=== PATIENT | female | born 1965 | race Caucasian/White ===

== ENCOUNTER 2018-02-14 20:56 | Observation (INO) ==
--- NOTE | 2018-02-14 21:07 | Emergency Department Note ---
Disposition Clinical Impression: Chest pain, Fever Disposition: Admitted As Inpatient Condition: Good Chest Pain HPI - General Chief Complaint: ED Chest Pain Stated Complaint: chest pain Time Seen by Provider: 02/14/18 21:05 Source: patient Mode of arrival: ambulatory Limitations: no limitations Vital Signs Reviewed: Yes Nursing Notes Reviewed: Yes - History of Present Illness HPI Narrative: Patient complains of chest pain tonight on the right side of her chest reading through to her back. Started about 5:00 this evening. It is not let up. Nothing she does seems to make it better or worse. She does feel little short of breath. She denies any nausea Pt complaint: chest pain Onset (ago): hour(s) (several hours) Duration: constant Onset: during rest Pain Location: right chest Severity: moderate Severity scale (1-10): 5 Quality: aching Pain Radiation: back Improves with: nothing Worsens with: nothing Associated symptoms: Reports: fever - Related Data Home Medications Medication Instructions Recorded Confirmed Estrogens, Conjugated [Premarin] 0.9 mg PO DAILY 06/23/16 02/14/18 Fenofibrate 40 mg PO DAILY 06/23/16 02/14/18 Omeprazole 40 mg PO DAILY 06/23/16 02/14/18 Aspirin [Lo-Dose Aspirin EC] 81 mg PO QAM 02/14/18 02/14/18 Allergies Allergy/AdvReac Type Severity Reaction Status Date / Time Sulfa (Sulfonamide Allergy Hives Verified 06/23/16 11:24 Antibiotics) All systems ED: reviewed and negative except as stated. Review of Systems: As Per HPI Constitutional: Denies: fever, chills, weakness, weight change Eyes: Denies: eye pain, eye discharge, vision change ENT ED: Denies: ear pain, throat pain, dental pain, hearing loss, epistaxis, congestion, dysphagia Cardiovascular: Reports: as per HPI, chest pain. Denies: palpitations, dyspnea on exertion, edema, syncope Respiratory: Denies: cough, dyspnea, wheezes, hemoptysis, stridor Gastrointestinal: Denies: abdominal pain, nausea, vomiting, diarrhea, constipation, hematemesis, melena, hematochezia Genitourinary: Denies: dysuria, frequency, hematuria, discharge Musculoskeletal: Denies: back pain, neck pain, arthralgia, myalgia Integumentary: Denies: rash, abrasion, lesions Neurological: Denies: headache, weakness, numbness, paresthesias, confusion, abnormal gait, vertigo Psychiatric: Denies: anxiety, depression, suicidal thoughts, homicidal thoughts , auditory hallucinations, visual hallucinations Endocrine: Denies: fatigue Hematological/Lymphatic: Denies: easy bleeding, easy bruising Allergic/Immunologic: Denies: facial swelling, urticaria Chest Pain PMH - Past Medical History Medical history: Reports: asthma, GERD, hyperlipidemia, renal disease, TIA, other Surgical history: Reports: cholecystectomy, hysterectomy, other (Tonsillectomy) Psychiatric history: Reports: no psych history - Social History Smoking Status: Never smoker Alcohol use: Reports: none Drug use: Reports: none Physical Exam - General Limitations: no limitations General appearance: alert, in no apparent distress - Head Head exam: atraumatic, normocephalic, normal inspection - Eye Eye exam: Present: normal appearance, PERRL, EOMI - ENT ENT exam: normal exam, normal oropharynx, mucous membranes moist - Neck Neck exam: Present: normal inspection, full ROM, trachea midline. Absent: tenderness, meningismus - Chest Chest inspection: Present: normal inspection, symmetric chest wall rise - Respiratory Respiratory exam: Present: normal lung sounds bilaterally - Cardiovascular Cardiovascular exam: Present: regular rate, normal rhythm, normal heart sounds - Abdominal Exam Abdominal exam: Present: soft, Non-Tender. Absent: tenderness, distention, guarding, rebound, rigidity - Extremities Exam Extremities exam: Present: normal inspection, full ROM. Absent: tenderness, pedal edema - Back Exam Back exam: Present: normal inspection - Neurological Exam Neurological exam: Present: alert, oriented X3 - Psychiatric Psychiatric exam: Present: normal affect, normal mood - Skin Skin exam: Present: warm, dry, intact Course Vital Signs Temperature 101.5 F H 02/14/18 21:00 Pulse Rate 103 02/14/18 21:00 Respiratory Rate 18 02/14/18 21:00 Blood Pressure 143/86 02/14/18 21:00 O2 Sat by Pulse Oximetry 97 02/14/18 21:00 Temperature 99.2 F 02/15/18 07:22 Pulse Rate 85 02/15/18 07:22 Respiratory Rate 16 02/15/18 07:22 Blood Pressure 110/76 02/15/18 07:22 O2 Sat by Pulse Oximetry 98 02/15/18 07:22 Oxygen Delivery Oxygen Delivery Room Air Chest Pain - MDM Narrative Medical decision making narrative: I reviewed the patient's medication list Case was discussed with Dr. Santos who accepts admission - Lab Data Lab results reviewed: Yes I reviewed the patient's lab results. Result diagrams: 02/15/18 03:30 02/15/18 03:30 Lab Results 02/14/18 02/14/18 Range/Units 21:21 21:21 WBC 9.7 (4.3-11.1) K/mcL RBC 4.36 (3.82-4.97) M/mcL Hgb 13.4 (11.5-15.4) g/dL Hct 38.6 (35.3-44.9) % MCV 88.5 (83.0-100.0) fL MCH 30.7 (28.0-33.3) pg MCHC 34.7 (31.6-35.5) g/dL RDW 12.7 (11.5-14.5) % Plt Count 304 (140-400) K/mcL MPV 11.1 (9.4-12.4) fL Immature Gran % 0.5 (0-4) % Seg Neutrophils % 76.8 % Lymphocytes % 14.9 % Monocytes % 6.7 % Eosinophils % 0.6 % Basophils % 0.5 % Neutrophils # 7.5 (1.6-8.9) K/mcL Lymphocytes # 1.5 (0.6-4.6) K/mcL Monocytes # 0.7 (0.0-1.3) K/mcL Eosinophils # 0.1 (0.0-0.6) K/mcL Basophils # 0.1 (0.0-0.2) K/mcL Sodium 137 (136-145) mEq/L Potassium 3.7 (3.5-5.1) mEq/L Chloride 103 (98-107) mEq/L Carbon Dioxide 24 (23-29) mEq/L BUN 14 (6-20) mg/dL Creatinine 1.06 (0.60-1.20) mg/dL Est GFR ( Amer) > 60 (> 60) Est GFR (Non-Af Amer) 54 L (> 60) BUN/Creatinine Ratio 13 (6-26) Glucose 114 H (70-105) mg/dL Calculated Osmolality 285 (280-300) Calcium 10.0 (8.6-10.3) mg/dL Troponin I < 0.03 (< 0.04) ng/mL - Radiology Data Radiology results reviewed: Yes I reviewed the patient's radiology results. - EKG Data EKG attestation: Yes I reviewed and interpreted this EKG. EKG results narrative: EKG shows sinus tachycardia relative rate of [address] bpm. There is minimal ST depression [place] interval is 150 ms. QRS 81 ms QT 311 and QTc interval 370 ms R axis of 15 degrees there is no ST elevation
[2018-02-14 21:41] LABS: Basophils # 0.1 K/mcL (0.0-0.2); Basophils % 0.5 %; Eosinophils # 0.1 K/mcL (0.0-0.6); Eosinophils % 0.6 %; Hematocrit 38.6 % (35.3-44.9); Hemoglobin 13.4 g/dL (11.5-15.4); Immature Granulocytes % 0.5 % (0-4); Lymphocytes # 1.5 K/mcL (0.6-4.6); Lymphocytes % 14.9 %; Mean Corpuscular HGB Conc 34.7 g/dL (31.6-35.5); Mean Corpuscular Hemoglobin 30.7 pg (28.0-33.3); Mean Corpuscular Volume 88.5 fL (83.0-100.0); Mean Platelet Volume 11.1 fL (9.4-12.4); Monocytes # 0.7 K/mcL (0.0-1.3); Monocytes % 6.7 %; Neutrophils # 7.5 K/mcL (1.6-8.9); Platelet Count 304 K/mcL (140-400); Red Blood Count 4.36 M/mcL (3.82-4.97); Red Cell Distribution Width 12.7 % (11.5-14.5); Segmented Neutrophils % 76.8 %
[2018-02-14 21:56] LABS: BUN/Creatinine Ratio 13 (6-26); Blood Urea Nitrogen 14 mg/dL (6-20); Carbon Dioxide 24 mEq/L (23-29); Chloride 103 mEq/L (98-107); Glucose 114 mg/dL (70-105); Osmolality,Calculated 285 (280-300); Potassium 3.7 mEq/L (3.5-5.1); Sodium 137 mEq/L (136-145); Troponin I < 0.03 ng/mL (< 0.04); eGFR For Non-African Americans 54 (> 60)
[2018-02-14] MEDS ORDERED: Azithromycin 250 MG TABLET PO ONE (22:19)
[2018-02-14] MEDS ORDERED: Naloxone 0.4 MG/ML INJ IVP PRN (23:26)
[2018-02-15 02:08] LABS: Bilirubin,Urine Negative (Negative); Blood,Urine Negative (Negative); Glucose,Urine (UA) Normal (Normal); Ketones,Urine Negative (Negative); Leukocyte Esterase,Urine Small (Negative); Nitrite,Urine Negative (Negative); Protein,Urine Negative (Neg-Trace); Specific Gravity,Urine <= 1.005 (1.010-1.025); Urobilinogen,Urine Normal (Normal)
[2018-02-15 02:14] LABS: Clarity,Urine Slightly Cloudy (Clear); Color,Urine Light Yellow (Yellow)
[2018-02-15 02:16] LABS: Renal Epithelial Cells,Urine Few per hpf (None-Few); Transitional Epi Cells,Urine Few per hpf (None-Few)
[2018-02-15 02:18] LABS: Bacteria,Urine Few per hpf (None-Few); RBC,Urine 0-3 per hpf (0-3); Squamous Epithelial Cell,Urine Few per lpf (None-Few); WBC,Urine 0-3 per hpf (0-3)
[2018-02-15 03:39] LABS: Basophils % 0.4 %; Eosinophils % 0.1 %; Hematocrit 36.9 % (35.3-44.9); Hemoglobin 12.6 g/dL (11.5-15.4); Immature Granulocytes % 0.4 % (0-4); Lymphocytes # 1.9 K/mcL (0.6-4.6); Lymphocytes % 25.9 %; Mean Corpuscular HGB Conc 34.1 g/dL (31.6-35.5); Mean Corpuscular Hemoglobin 30.4 pg (28.0-33.3); Mean Corpuscular Volume 88.9 fL (83.0-100.0); Mean Platelet Volume 10.5 fL (9.4-12.4); Monocytes # 0.4 K/mcL (0.0-1.3); Monocytes % 5.5 %; Platelet Count 244 K/mcL (140-400); Red Blood Count 4.15 M/mcL (3.82-4.97); Red Cell Distribution Width 12.6 % (11.5-14.5); Segmented Neutrophils % 67.7 %
[2018-02-15 04:01] LABS: BUN/Creatinine Ratio 14 (6-26); Blood Urea Nitrogen 13 mg/dL (6-20); Carbon Dioxide 25 mEq/L (23-29); Chloride 106 mEq/L (98-107); Potassium 3.5 mEq/L (3.5-5.1); Sodium 139 mEq/L (136-145)
[2018-02-15 04:02] LABS: Calcium 9.3 mg/dL (8.6-10.3); Glucose 109 mg/dL (70-105); Osmolality,Calculated 289 (280-300); eGFR For Non-African Americans > 60 (> 60)
[2018-02-15] MEDS ORDERED: Aspirin Enteric Coated 81 MG Tablet PO SCH (09:00)
[2018-02-15] MEDS ORDERED: Fenofibrate 54 MG TABLET PO SCH (09:00)
[2018-02-15 11:14] VITALS: BP 131/78
--- NOTE | 2018-02-15 12:13 | Internal Med History&Physical ---
Date of Encounter: 02/15/18 Time of Encounter: 11:40 Assessment and Plan (1) Chest pain Current visit: Yes Status: Acute Doubt myocardial ischemia from history and physical. Repeat cardiac enzymes were ordered through emergency room. Qualifiers: Chest pain type: unspecified Qualified Code(s): R07.9 - Chest pain, unspecified (2) Fever Current visit: Yes Status: Acute Afebrile at present time. Initial WBC was normal with borderline left shift. Follow-up CBC shows resolution of left shift with no leukocytosis. Suspect viral etiology. She denies cough dyspnea or UTI symptoms. Qualifiers: Fever type: unspecified Qualified Code(s): R50.9 - Fever, unspecified (3) CKD (chronic kidney disease) stage 3, GFR 30-59 ml/min Current visit: Yes Status: Chronic Stable Internal Medicine - H&P: HPI Chief complaint: Headache, chills, chest pain Plans for Post Hospital Care: Home History of present illness: Ms. Wang is a 52 year old female who came to emergency room stating she awakened with a headache approximately 0500 the day of admission. She reports it persisted and approximately 1630 she laid down to rest. She felt chilled and a sensation her heart was pounding and rapid. Shortly after that she felt hot and developed some discomfort in her right chest area that she describes as a "turning". She denies cough or dyspnea. She came to emergency room and was found to have fever up to 103.2. She was admitted to [facility] floor for ongoing care needs. She states her chest pain has resolved. Her headache has lessened. She had an episode of vomiting approximately 0700 today but has no significant residual nausea now. She denies cough or dyspnea. She feels improved and wishes to be discharged home. Cardiovascular history is negative for hypertension CT heart failure angina DVT or pulmonary embolus. Past Med Surg Social Fam HX - Past Medical History Medical history: asthma, GERD, hyperlipidemia, renal disease, TIA, other Additional medical history: heart murmur. hx of blood clot. Psychiatric history: no psych history - Past Surgical History Surgical History: cholecystectomy, hysterectomy, other (Tonsillectomy) Additional surgical history: CARPAL TUNNEL RELEASE LT HAND - Social History Smoking Status: Never smoker Smokeless Tobacco Status: No Alcohol use: none Drug use: none Internal Medicine - H&P: Meds Estrogens, Conjugated [Premarin] 0.9 mg PO DAILY 06/23/16 [History] Fenofibrate 40 mg PO DAILY 06/23/16 [History] Omeprazole 40 mg PO DAILY 06/23/16 [History] Aspirin [Lo-Dose Aspirin EC] 81 mg PO QAM 02/14/18 [History] 3 Allergy/AdvReac Type Severity Reaction Status Date / Time Sulfa (Sulfonamide Allergy Hives Verified 06/23/16 11:24 Antibiotics) All Systems PM: A 10-system review of systems was performed and is negative for pertinent findings except as documented above in the HPI. Review of systems: Gen.: She states her weight has increased approximately 10 pounds in the past year Cardiovascular: As per history of present illness Respiratory: She is a lifelong nonsmoker. She reports a history of asthma in childhood. She uses her rescue inhaler very rarely. GI: She has had cholecystectomy. She denies disorders of her liver or exocrine pancreas. 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 She denies other kidney or bladder disorders. Neurologic: She reports a "mini stroke" in 2016 without permanent neurologic deficit. It was attributed to estrogen use. She takes aspirin daily and has had no recurrence. She denies other large distribution strokes or seizures. Endocrine: She has hyperlipidemia but denies diabetes or thyroid disease. Hematology/oncology: She denies blood disorders cancers or anemia Psychiatric: She denies anxiety depression or other mental health issues [place] skeletal: She has DJD and has had bilateral carpal tunnel surgeries. She denies gout or other bone joint or muscle disorders. - Constitutional Vitals: Temp Pulse Resp BP Pulse Ox 98.4 F 72 15 131/78 98 02/15/18 11:12 02/15/18 11:12 02/15/18 11:12 02/15/18 11:12 02/15/18 11:12 Exam: Gen.: She is a well-developed well-nourished female resting comfortably in bed who appears in no acute distress at present time. HEENT: Head is atraumatic and normocephalic. Eyes: EOMI. There is no scleral icterus. Mouth: Mucosa is moist. Neck: Supple and nontender. There is no thyromegaly or adenopathy noted. Heart: Regular without murmurs gallops or ectopics Chest: She is nontender in her right upper chest wall to palpation. Abdomen: Soft and nontender. Bowel sounds are diminished. No masses or guarding are noted. Extremities: There is no cyanosis edema or clubbing noted. Dorsalis pedis and posttibial pulses are 1-2 over 2 bilaterally. Neurologic: Mental status: She is talkative and a good historian. Cranial nerves: Smile is symmetric. Forehead wrinkles bilaterally. Tongue protrudes midline. EOMI. Motor: There is no pronator drift. Cerebellar: Finger to nose is intact bilaterally. Skin: Warm and dry Internal Med - H&P Results - Labs CBC & Chem 7: 02/15/18 03:30 02/15/18 03:30 Labs: Short CBC 02/15/18 Range/Units 03:30 WBC 7.4 (4.3-11.1) K/mcL Hgb 12.6 (11.5-15.4) g/dL Hct 36.9 (35.3-44.9) % Plt Count 244 (140-400) K/mcL Neutrophils # 5.0 (1.6-8.9) K/mcL BMP 02/15/18 03:30 Sodium 139 Potassium 3.5 Chloride 106 Carbon Dioxide 25 BUN 13 Creatinine 0.90 Glucose 109 H Calcium 9.3 Cardiac Enzymes 02/15/18 02/15/18 Range/Units 03:30 09:06 Troponin I < 0.03 < 0.03 (< 0.04) ng/mL Urine 02/15/18 Range/Units 01:30 Urine Color Light Yellow (Yellow) Urine Clarity Slightly Cloudy A (Clear) Urine pH 6.0 (5.0-8.0) pH Units Ur Specific [place] <= 1.005 L (1.010-1.025) Urine Protein Negative (Neg-Trace) mg/dL Urine Glucose (UA) Normal (Normal) mg/dL
--- NOTE | 2018-02-15 12:25 | Discharge Summary ---
Orders not resulted at time of discharge: Pending orders 02/15/18 01:30 Culture,Urine [RM] Stat Date of Encounter: 02/15/18 Time of Encounter: 11:40 - Discharge Diagnosis (1) Chest pain Priority: Primary Status: Resolved Qualifiers: Chest pain type: unspecified Qualified Code(s): R07.9 - Chest pain, unspecified (2) Fever Priority: Secondary Status: Acute Qualifiers: Fever type: unspecified Qualified Code(s): R50.9 - Fever, unspecified (3) CKD (chronic kidney disease) stage 3, GFR 30-59 ml/min Priority: Secondary Status: Chronic Hospital course: Ms. Wang is a 52 year old female who came to emergency room stating she awakened with a headache approximately 0500 the day of admission. She reports it persisted and approximately 1630 she laid down to rest. She felt chilled and a sensation her heart was pounding and rapid. Shortly after that she felt hot and developed some discomfort in her right chest area that she describes as a "turning". She denies cough or dyspnea. She came to emergency room and was found to have fever up to 103.2. She was admitted to [facility] for ongoing care needs. Initial orders were written by the emergency room physician. I saw her on February 15 and performed a history physical and discharge. By the time I saw her the chest pain had resolved and had not recurred. Repeat cardiac enzymes showed no evidence of myocardial damage. I did not feel she had myocardial ischemia as etiology of the pain. She remained afebrile after leaving emergency room. She had an episode of vomiting approximately 0700 on February 15 but felt improved when I saw her without residual nausea. She was able to tolerate adequate amount of food and fluids and wished to be discharged home which I felt was reasonable. I told her I felt she likely had a viral infection. Influenza testing in emergency room was negative. She will follow with her PCP within 1 week. - Time Spent with Patient Total time spent providing and/or coordinating discharge services: - Discharge Medications Home Medications: Fenofibrate 40 mg PO DAILY 06/23/16 [History] Omeprazole 40 mg PO DAILY 06/23/16 [History] Aspirin [Lo-Dose Aspirin EC] 81 mg PO QAM 02/14/18 [History] Allergies/Adverse Reactions: 3 Allergy/AdvReac Type Severity Reaction Status Date / Time Sulfa (Sulfonamide Allergy Hives Verified 06/23/16 11:24 Antibiotics) Date of admission: 02/14/18 22:30 Primary care physician: Barbara Garces CNP - Constitutional Vitals: Temp Pulse Resp BP Pulse Ox 98.4 F 72 15 131/78 98 02/15/18 11:12 02/15/18 11:12 02/15/18 11:12 02/15/18 11:12 02/15/18 11:12 - Patient Status Disposition: Home, Self-Care Condition: Good - Discharge Instructions Follow Up With: Barbara Garces CNP [Primary Care Provider] - - Diet and Activity Activity: resume usual activities as tolerated Diet: advance to your usual diet
--- NOTE | 2018-02-18 09:35 | Electrocardiograph Report ---
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
== END 2018-02-15 13:08 | disposition home or self-care (01) ==
LOC: INPPIK 20:56 → EMEROOPIK 20:56 → INPPIK 23:25
PROVIDERS: ADMIT Internal Medicine; ATTEND Internal Medicine